=== PATIENT | female | born 1960 | race Asian ===

== ENCOUNTER → 2016-04-28 | Outpatient (CLI) | payer OTHER ==
[~2016-04-28] MED LIST: NAPROSYN500 MG PO; NORFLEX100 MG PO; PRILOSEC 20 MG20 MG PO; ULTRAM 50MG TAB50 MG PO
== END ==
LOC: RAD 09:49 → ULTRA 13:44
DX: Z12.31 Encounter for screening mammogram for malignant neoplasm of breast (principal); N63 Unspecified lump in breast

== ENCOUNTER 2018-01-11 12:41 | Emergency (ER) | payer OTHER ==
[~2018-01-11] VITALS: Ht 160 cm; Wt 68.0 kg
[2018-01-11 13:14] LABS: HEMATOCRIT 43.3 % (37.0-47.0); HEMOGLOBIN 14.6 gm/dL (12.0-15.0); MCH 29.2 pg (26.0-34.0); MCHC 33.7 g/dL (28.0-37.0); MCV 86.7 fL (80.0-100.0); RBC 4.99 mil/uL (4.20-5.00); RDW 12.5 % (10.5-14.5); WBC 8.2 thou/uL (4.0-11.0)
[2018-01-11 13:20] LABS: CALCIUM 9.6 mg/dL (8.5-10.1); CREATININE 0.8 mg/dL (0.6-1.0); POTASSIUM 3.8 mmol/L (3.5-5.1)
[2018-01-11] MEDS ORDERED: NORCO 5-325 TA1 EACH PO (13:20)
[2018-01-11 16:10] VITALS: BP 121/90
[2018-01-11] MEDS ORDERED: ONDANSETRON HCL4 M2 PO (16:22)
[2018-01-11] MEDS ORDERED: ULTRAM 50MG TAB50 MG PO (16:22)
== END 2018-01-11 16:10 | disposition home or self-care (01) ==
LOC: ER 12:41
PROVIDERS: Physician Assistant
DX: G89.18 Other acute postprocedural pain (principal); M25.562 Pain in left knee; F41.9 Anxiety disorder, unspecified; M21.272 Flexion deformity, left ankle and toes; K21.9 Gastro-esophageal reflux disease without esophagitis

== ENCOUNTER → 2018-07-28 | Outpatient (CLI) | payer OTHER ==
[~2018-07-28] MED LIST changes: +NORCO 5-325 TA1 EACH PO; +ONDANSETRON HCL4 M2 PO
== END ==
LOC: ULTRA 07:49
DX: K76.0 Fatty (change of) liver, not elsewhere classified (principal); K76.9 Liver disease, unspecified

== ENCOUNTER → 2019-03-07 | Outpatient (CLI) | payer OTHER | LOC: NUC 08:55 | DX: M81.0 Age-related osteoporosis without current pathological fracture (principal) ==